=== PATIENT | male | born 1950 | race American Indian/Alaskan Native ===

== ENCOUNTER 2017-03-30 07:38 | Day surgery (SDC) | payer MEDICARE ==
[2017-03-30 09:08] VITALS: BMI 36.5
[2017-03-30] MEDS ORDERED: Lactated Ringer's 500 ML IV SCH (09:30)
[2017-03-30] MEDS ORDERED: Propofol 10 mg/ml Inj (20 ML) ONE (09:44)
[2017-03-30] MEDS ORDERED: Lactated Ringer's 1,000 ML IV ONE (09:47)
[2017-03-30 09:56] VITALS: O2SAT 100
[2017-03-30 10:37] VITALS: TEMP 97.3
[2017-03-30 11:11] VITALS: RESP 15
[2017-03-30 11:14] VITALS: BP 115/70; PULSE 77
== END 2017-03-30 11:12 | disposition home or self-care (01) ==
LOC: C.ENDO 07:38
PROVIDERS: ATTEND Internal Medicine Gastroenterology
DX: Z12.11 Encounter for screening for malignant neoplasm of colon (principal); Z86.010 Personal history of colon polyps; K64.1 Second degree hemorrhoids
CPT/HCPCS: 82948; G0105; J2704; J3010; J7120